=== PATIENT | male | born 1955 | race Caucasian/White ===

== ENCOUNTER 2024-06-17 09:05 | Day surgery (SDC) | payer MEDICARE, OTHER, SELFPAY ==
--- NOTE | 2024-06-17 | PATH_ITS ---
[facility] Accession Number: [id number] No. of containers..03 Tissue . 01 Material submitted: . PART A: gastrointestinal site - GASTRIC BIOPSY PART B: esophagus, E-G Junction - GE JUNCTION PART C: rectum - RECTAL POLYP . 01 Diagnosis: Part A: GASTRIC BIOPSY: Gastric oxyntic mucosa with no diagnostic alterations. No Helicobacter organisms identified on H/E stain. No intestinal metaplasia, dysplasia, or malignancy identified. . Part B: GE JUNCTION: Gastroesophageal junction mucosa with focal erosion and reactive changes suggestive of reflux. No goblet cell metaplasia or dysplasia identified. Eosinophils are not increased. . Part C: RECTAL POLYP: Tubular adenoma. [facility] 06/20/2024 1325 Local . 01 Electronically signed: . Kevin Puri MD, Pathologist NPI- [id number] . 01 Gross description: . A. Received in formalin with two patient identifiers and gastric biopsy, is a single rizzo soft tissue fragment 0.4 cm in greatest dimension. Submitted in cassette A1. . B. Received in formalin with two patient identifiers and GE junction, is a single rizzo soft tissue fragment 0.5 cm in greatest dimension. Submitted in cassette B1. . C. Received in formalin with two patient identifiers and rectal polyp, are six rizzo soft tissue fragments 0.4 to 1.7 cm in greatest dimension. Submitted in cassette C1. ([id number]) /[facility] 06/20/2024 1325 Local . 01 Microscopic: . Part B: GE JUNCTION: An ABPAS stain was performed to evaluate for fungal organisms and is negative. The control stains appropriately. . 01 Pathologist provided ICD-10: D12.8, K21.00 . 01 CPT . 432793, 191311, [id number], 445382 Specimen Comment: A courtesy copy of this report has been sent to [phone] Performed at: [address] [address], [place], [place] [id number] MD Kevin Puri MD Phone: [phone]
[2024-06-17 09:25] VITALS: BP 149/74; PULSE 64; RESP 18; TEMP 36.5; O2SAT 97
[2024-06-17] MEDS: LACTATED RINGERS 1,000 ML 42 ML IV (09:40)
--- NOTE | 2024-06-17 09:52 | PM.HP.1 ---
History of Present Illness History of Present Illness Date Patient Seen: 06/17/24 Time Patient Seen: 09:53 Chief complaint: [facility] [place]ative: 68-year-old male here for diagnostic colonoscopy and esophagogastroduodenoscopy for diagnosis of GI bleed. No family history of colon cancer. He occasionally has visible blood per rectum typically bright. [facility] Medical History Appendicitis Surgical History Hx of carpal tunnel repair History of appendectomy Social History Smoking Status: Never smoker alcohol intake: current Meds Home Medications and Allergies Home Medications Medication Instructions Recorded Confirmed Type citalopram 20 mg tablet 20 mg PO DAILY 06/17/24 06/17/24 History Allergies Allergy/AdvReac Type Severity Reaction Status Date / Time No Known Drug Allergies Allergy Verified 06/17/24 09:20 Exam Vital Signs (past 8 hours): - 06/17/24 09:25 Temperature 97.7 F Pulse Rate 64 Respiratory Rate 18 Blood Pressure 149/74 H Pulse Oximetry 97 Oxygen Delivery Method Room Air Oxygen Delivery Method Room Air Narrative Exam Narrative: General adult man alert oriented no acute distress Chest nonlabored respiration Extremities warm well perfused Assessment & Plan Assessment & Plan narrative: Upper and lower endoscopy indicated for guiac positive stool.. Technical details were discussed. Risks, benefits, alternatives explained. Risks including but not limited to myocardial infarction, aspiration, bleeding, pain, missed lesion, incomplete examination, need for further radiographic studies, intestinal injury, and need for major abdominal surgery were discussed. All questions were answered to their satisfaction, and they are in agreement with this plan. Time-Based Coding :: [TOTAL MINUTES] spent with patient and on the chart (including review of chart, obtaining history, exam, reviewing outside data, placing orders, documenting exam and treatment plan, and counseling patient) on [DATE].
--- NOTE | 2024-06-17 10:01 | SUR.OPER ---
EGD SCOPE 048
[2024-06-17 10:30] VITALS: BP 117/76; PULSE 72; RESP 18; TEMP 37; O2SAT 93
--- NOTE | 2024-06-17 10:34 | PM.OP.EC ---
Operative Date/Time/Diagnoses Date of procedure: 06/17/24 Time of procedure: 10:34 Pre-op diagnosis: Guaiac-positive Post-op diagnosis: other (Colonic polyp x1) Procedure & Clinicians Study performed: Esophagogastroduodenoscopy and colonoscopy Same procedure as scheduled: Yes Indications: 68-year-old man guaiac-positive here for diagnostic upper and lower endoscopy Surgeon: Skyler Dudley Procedure Notes Procedure in detail: The history and physical was performed/updated and the patient is ASA class is 2. The procedure was discussed in detail with the patient. Potential risks complications including infection, bleeding, missed diagnosis, perforation, need for surgery, and were explained. Their questions were answered and informed consent was obtained. Patient placed in left lateral decubitus position. Time out was performed. Procedural sedation was administered by Anesthesia. A bite block was placed. the scope was inserted into the mouth and advanced through the esophagus and into the stomach. the pylorus was intubated and the duodenum was examined to the 2nd portion.. The scope was retroflexed within the stomach. The stomach was then decompressed and scope pulled back to the GE junction. The scope was then removed Examination began with a thorough inspection of the perianal area there was no evidence of fissures, fistulae, external hemorrhoids or cutaneous malignancy. The colonoscopy scope was then placed into the anal canal and was advanced to the cecum, which was identified by the ileocecal valve, the appendiceal orifice and the confluence of the taenia. The scope was then slowly withdrawn examining colon thoroughly in all directions, irrigating it of any residual stool. FINDINGS -slight inflammation at the GE junction. Biopsied with forceps. -rectal polyp 5 mm polyp removed with cold snare -diverticulosis of descending colon -internal hemorrhoids The patient tolerated the procedure well. They will be discharged once criteria are met. The prep was of good/excellent quality. The withdrawl time was 8 minutes. Specimen(s): other (Rectal polyp, gastric, GE junction) Impression: Colonic polyp x1 Post-procedure Plan for aftercare: Follow-up is dependent on pathology findings likely 5 years Disposition: same day surgery
[2024-06-17 10:36] VITALS: BP 145/78; PULSE 60; RESP 16; TEMP 36.9; O2SAT 93
[2024-06-17 10:41] VITALS: BP 142/86; PULSE 61; RESP 12; TEMP 36.9; O2SAT 96
[2024-06-17 10:46] VITALS: BP 150/82; PULSE 57; RESP 11; TEMP 36.9; O2SAT 98
== END 2024-06-17 10:55 | disposition home or self-care (01) ==
PROVIDERS: Family Provider Family Medicine; PCP Family Medicine; Referring Provider Surgery; Visit Provider Surgery
PROC: 0DJ08ZZ Inspection of Upper Intestinal Tract, Via Natural or Artificial Opening Endoscopic (ICD-10-PCS; CPT 45385; principal; 2024-06-17 10:00)
PROC: 0DJD8ZZ Inspection of Lower Intestinal Tract, Via Natural or Artificial Opening Endoscopic (ICD-10-PCS; CPT 45378; 2024-06-17 10:00)
DX: Z12.11 Encounter for screening for malignant neoplasm of colon (principal); R19.5 Other fecal abnormalities; K20.90 Esophagitis, unspecified without bleeding; K57.30 Diverticulosis of large intestine without perforation or abscess without bleeding; K64.8 Other hemorrhoids; D12.8 Benign neoplasm of rectum
CPT/HCPCS: 45385; 43239

== ENCOUNTER → 2024-08-01 16:56 | Outpatient (CLI) | payer MEDICARE, OTHER, SELFPAY ==
--- NOTE | 2024-08-01 16:57 | DI.MRI.S_ITS ---
PROCEDURE: MR LUMBAR SPINE WO CON INDICATIONS: SPINAL STENOSIS,LUMBAR REGION TECHNIQUE: Noncontrast sagittal T1 spin echo and T2 fast echo, sagittal STIR, and T2 fast spin echo through the lumbar spine. In cases with scoliosis, additional coronal T2 fast spin echo may be performed. COMPARISON: [facility] [place], [place], XR LUMBAR SPINE 2 OR 3 VIEWS, 06/11/2024, 10:04. FINDINGS: Image quality: Excellent. Alignment and Curvature: There is mild, approximately 5 millimeters of L4-L5 anterolisthesis secondary to facet hypertrophy. Bone Marrow: Mild Modic type 2 reactive endplate changes noted adjacent to the L1-L2, L2-L3 and L3-L4 discs. No acute vertebral body compression fractures. Spinal Cord: Conus medullaris terminates at the T12 level. Visualized cord demonstrates normal signal and size. Paraspinous Soft Tissues: No paravertebral masses. T12-L1: Loss of disc signal. Mild, diffuse disc bulge. No central stenosis. No neural foraminal narrowing. No neural compression. L1-L2: Loss of disc signal. Mild, diffuse disc bulge. No central stenosis. No neural foraminal narrowing. No neural compression. L2-L3: Loss of disc signal. Moderate, diffuse disc bulge. Mild bilateral facet hypertrophy. Mild narrowing of the central canal. Mild bilateral neural foraminal narrowing. No neural compression. L3-L4: Loss of disc signal. Mild, diffuse disc bulge. Mild bilateral facet hypertrophy. Mild narrowing of the central canal. Mild bilateral neural foraminal narrowing. No neural compression. L4-L5: Loss of disc signal. Mild, diffuse disc bulge. Severe bilateral facet hypertrophy. Severe narrowing of the central canal with slight compression of the traversing nerve roots of the cauda equina. Mild bilateral neural foraminal narrowing. L5-S1: Slight loss of disc signal. Mild bilateral facet hypertrophy. No central stenosis. No neural foraminal narrowing. No neural compression. IMPRESSION: Grade 1 L4-L5 degenerative spondylolisthesis. Multilevel degenerative disc disease. Multilevel facet arthropathy. Severe L4-L5 central canal stenosis with slight compression of the traversing nerve roots of the cauda equina. No severe neural foraminal narrowing. Dictated by: Trupti Red MD, PhD on 08/04/2024 at 12:50 Approved by: Trupti Red MD, PhD on 08/04/2024 at 12:54
== END ==
LOC: MRI 16:57
PROVIDERS: Family Provider Family Medicine; PCP Family Medicine; Referring Provider Physical Medicine & Rehabilitation; Visit Provider Physical Medicine & Rehabilitation
DX: M48.062 Spinal stenosis, lumbar region with neurogenic claudication (principal); M43.16 Spondylolisthesis, lumbar region; M47.817 Spondylosis without myelopathy or radiculopathy, lumbosacral region; M51.36 Other intervertebral disc degeneration, lumbar region; M51.37 Other intervertebral disc degeneration, lumbosacral region
CPT/HCPCS: 72148